=== PATIENT | female | born 1975 | race Caucasian/White ===

== ENCOUNTER 2017-02-15 07:01 | Day surgery (SDC) | payer BC ==
[~2017-02-15 07:01] MED LIST: Lactated Ringers 1,000 ML IV SCH; Lidocaine 1%/Sod Bicarbonate in NS 8.4% 1 ML Syringe IV PRN; Sodium Chloride 0.9% 10 ML Syringe FLUSH PRN
[2017-02-15] MEDS ORDERED: Lidocaine 1% with EPINEPHrine 1:100,000 20 ML MDV ONE (07:03)
--- NOTE | 2017-02-15 07:26 | PCM.PREANE ---
Preanesthetic Assessment - Anesthesia/Transfusion/Family Hx Anesthesia History: Prior Anesthesia Reaction Type of Anesthesia Reaction: Excessive Nausea/Vomiting (not requiring hospital admission ) Family History of Anesthesia Reaction: No Transfusion History: No Prior Transfusion(s) Intubation History: Unknown (no difficulty ) - Review of Systems General: Other (congestion since this AM ) Pulmonary: No Symptoms Cardiovascular: Palpitations (in the past, none since on Metoprolol, which patient did take this am ) Gastrointestinal: No symptoms Neurological: No Symptoms Other: Reports: Thyroid Problems - Physical Assessment NPO Status Date: 02/14/17 NPO Status Time: 21:15 Pulse: 87 O2 Sat by Pulse Oximetry: 100 Respiratory Rate: 16 Blood Pressure: 142/92 Temperature: 97.9 C Height: 1.63 m ASA Class: 2 Mental Status: Alert & Oriented x3 Airway Class: Mallampati = 1 Dentition: Reports: Normal Dentition Thyro-Mental Finger Breadths: 3 Mouth Opening Finger Breadths: 5 ROM/Head Extension: Full Lungs: Clear to auscultation, Normal respiratory effort Cardiovascular: Regular Rate, Regular Rhythm - Allergies Allergies/Adverse Reactions: Allergies Allergy/AdvReac Type Severity Reaction Status Date / Time No Known Allergies Allergy Verified 08/18/14 13:43 - Blood Blood Available: No - Anesthesia Plan Pre-Op Medication Ordered: None Beta Tia: Metoprolol (took this Am) - Acknowledgements Anesthesia Type Planned: General Anesthesia Pt an Appropriate Candidate for the Planned Anesthesia: Yes Alternatives and Risks of Anesthesia Discussed w Pt/Guardian: Yes Pt/Guardian Understands and Agrees with Anesthesia Plan: Yes PreAnesthesia Questionnaire HEENT History: Reports: Sinusitis Cardiovascular History: Reports: Other (see below) Other Cardiovascular History: palpitations Respiratory History: Reports: None Gastrointestinal History: Reports: Other (see below) Other Gastrointestinal History: umbilical mass Genitourinary History: Reports: UTI, recurrent, Other (see below) Other Genitourinary History: frequency, urgency 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: Musculoskeletal History: Reports: Other (see below) Other Musculoskeletal History: R low back pain, back strain Neurological History: Reports: None Psychiatric History: Reports: None Endocrine/Metabolic History: Reports: Hypothyroidism Hematologic History: Reports: None Immunologic History: Reports: None Oncologic (Cancer) History: Reports: None Dermatologic History: Reports: None - Past Surgical History Head Surgeries/Procedures: Reports: None GI Surgical History: Reports: Cholecystectomy - SUBSTANCE USE Smoking Status *Q: Current Every Day Smoker (4 ciggarettes/ day - last smoked this AM at 6Am) Second Hand Smoke Exposure: Yes Days Per Week of Alcohol Use: 1 Number of Drinks Per Day: 0 Total Drinks Per Week: 0 Recreational Drug Use History: No - HOME MEDS Home Medications: Home Meds Levothyroxine Sodium [Synthroid] 137 mcg PO ACBRK 08/18/14 [History] Metoprolol Succinate [Toprol XL] 25 mg PO DAILY 08/18/14 [History] Cholecalciferol (Vitamin D3) [Vitamin D3] 2,000 unit PO DAILY 02/14/17 [History] Levothyroxine Sodium [Levothyroxine Sodium] 150 mcg PO DAILY 02/14/17 [History] - CURRENT (IN HOUSE) MEDS Current Meds: Current Medications Lactated Ringer's (Ringers, Lactated) 1,000 mls @ 125 mls/hr IV ASDIRECTED CAROLYN Stop: 02/15/17 18:00 Lidocaine/Sodium Bicarbonate (Buffered Lidocaine 1% In Ns 8.4%) 0.25 ml IV ONETIME PRN PRN Reason: Prior to IV Start Stop: 02/15/17 18:00 Sodium Chloride (Saline Flush) 10 ml FLUSH ASDIRECTED PRN PRN Reason: Keep Vein Open Stop: 02/15/17 18:00 Discontinued Medications Bupivacaine HCl/Epinephrine Bitart (Marcaine 0.5%/Epinephrine 1:200,000) Confirm Administered Dose 50 ml .ROUTE .STK-MED ONE Stop: 02/15/17 07:04 Lidocaine/Epinephrine (Xylocaine 1% With Epinephrine 1:100,000) Confirm Administered Dose 20 ml .ROUTE .STK-MED ONE Stop: 02/15/17 07:04 Preanesthetic Assessment - ANESTHESIA/TRANSFUSION/FAMILY HX Anesthesia/Transfusion History: No Prior Transfusion(s), Prior Anesthesia (no problems) Family History of Anesthesia Reaction: No - ALLERGIES Allergies/Adverse Reactions: Allergies Allergy/AdvReac Type Severity Reaction Status Date / Time No Known Allergies Allergy Verified 08/18/14 13:43
[2017-02-15] MEDS ORDERED: diphenhydrAMINE 50 MG/ML SDV IVPUSH PRN (07:29)
[2017-02-15] MEDS ORDERED: Ondansetron 4 MG/2 ML SDV IVPUSH PRN (07:29)
[2017-02-15] MEDS ORDERED: fentaNYL 100 MCG/2 ML SDV IVPUSH PRN (07:29)
[2017-02-15] MEDS ORDERED: Scopolamine 1.5 MG Transdermal Patch TRDERM SCH (07:30)
[2017-02-15] MEDS ORDERED: Midazolam 1 MG/ML 2 ML SDV ONE (07:42)
[2017-02-15] MEDS ORDERED: fentaNYL 250 MCG/5 ML SDV ONE (07:42)
[2017-02-15] MEDS ORDERED: Propofol 200 MG/20 ML SDV ONE (07:45)
[2017-02-15] MEDS ORDERED: Acetaminophen 325 MG Tab PO SCH (07:45)
[2017-02-15] MEDS ORDERED: ceFAZolin 1 GM Vial ONE (07:47)
[2017-02-15] MEDS: Bupivacaine 0.5%/EPINEPHrine 1:200,000 50 ML MDV ONE ×2 (08:20→08:28)
[2017-02-15] MEDS ORDERED: Dexamethasone 4 MG/ML SDV ONE (08:25)
[2017-02-15] MEDS ORDERED: Ondansetron 4 MG/2 ML SDV ONE (08:25)
[2017-02-15] MEDS ORDERED: Scopolamine 1.5 MG Transdermal Patch TRDERM ONE (08:30)
[2017-02-15] MEDS ORDERED: Meperidine PF 50 MG/ML Syringe IVPUSH PRN (08:30)
[2017-02-15] MEDS ORDERED: HYDROmorphone 0.5 MG/0.5 ML Syringe IVPUSH PRN (08:30)
[2017-02-15] MEDS ORDERED: ePHEDrine/Normal Saline 25 MG/5 ML Syringe ONE (08:41)
[2017-02-15] MEDS ORDERED: Phenylephrine/Normal Saline 100 MCG/ML 10 ML Syringe ONE (08:41)
[2017-02-15] MEDS ORDERED: Ketorolac 30 MG/ML SDV ONE (08:47)
[2017-02-15] MEDS ORDERED: Ketamine 500 mg/10 ML MDV ONE (08:48)
--- NOTE | 2017-02-15 09:26 | PCM.OPNOTE ---
- General Post-Op/Procedure Note Date of Surgery/Procedure: 02/15/17 Operative Procedure(s): open umbilical hernia repair with mesh Findings: laporscpic incisonal umbilical hernia with 3 cm defect Pre Op Diagnosis: symptomatic umbilical hernia Post-Op Diagnosis: Laparoscopic incisional, umbilical hernia Anesthesia Technique: General ET tube, Local Primary Surgeon: Blair Elizabeth Pathology: none EBL in mLs: 3 Complications: None Condition: Good Free Text/Narrative:: After adequate general endotracheal tube anesthesia was obtained the patient's abdomen was prepped and draped sterilely for an open umbilical hernia repair. After local analgesia was given a supraumbilical incision was made in the previous cholecystectomy incision. The incision was extended down to the herniated sac containing omental fat. I the sac sharply away from the surrounding subcutaneous tissues and skin, down to the fascia. I opened the sac and reducing its omental contents. I excised redundant sac. The diameter of the defect was about 3 cm. I inserted a [address] Mesh. through this opening, and then closed the fascia with interrupted 0 Ethibond suture. The umbilicus was reattached to the midline with a 3-0 Vicryl. Local was given here. The subcutaneous tissues were closed with 3-0 Vicryl. The skin was closed with a 4- 0 subcuticular Vicryl suture. Steri-Strips and gauze were used for the dressing.There were no complications.
--- NOTE | 2017-02-15 09:49 | PCM.POSTAN ---
POST ANESTHESIA ASSESSMENT - MENTAL STATUS Mental Status: alert - VITAL SIGNS Pulse Rate: 84 SaO2: 96 Resp Rate: 10 Blood Pressure: 124/78 Temperature: 97.4 C - RESPIRATORY Respiratory Status: respiratory rate WNL, airway patent, O2 saturation stable - CARDIOVASCULAR CV Status: pulse rate WNL, blood pressure stable - GASTROINTESTINAL GI Status: no symptoms - PAIN Pain Score: 2 (declined pain medicine ) - POST OP HYDRATION Hydration Status: adequate & stable
--- NOTE | 2017-02-15 11:53 | PCM48HPAN ---
Post Anesthesia Note - EVALUATION WITHIN 48HRS OF ANESTHETIC Vital Signs in Normal Range: Yes Patient Participated in Evaluation: Yes Respiratory Function Stable: Yes Airway Patent: Yes Cardiovascular Function Stable: Yes Hydration Status Stable: Yes Pain Control Satisfactory: Yes Nausea and Vomiting Control Satisfactory: Yes Mental Status Recovered: Yes
[2017-02-15] MEDS ORDERED: Acetaminophen/oxyCODONE 325-5 MG Tab PO ONE (13:00)
[2017-02-15 13:20] VITALS: BP 121/77
== END 2017-02-15 12:45 | disposition home or self-care (01) ==
LOC: JD.SDS 07:01
PROVIDERS: ATTEND Surgery
PROC: 0WQF4ZZ Repair Abdominal Wall, Percutaneous Endoscopic Approach (ICD-10-PCS; principal; 2017-02-15)
DX: K42.9 Umbilical hernia without obstruction or gangrene (principal); E03.9 Hypothyroidism, unspecified; Z79.899 Other long term (current) drug therapy
CPT/HCPCS: 49652; A9270; C1781; J0690; J1100; J1885; J2250; J2405; J3010; J7050; J7120; 00750; J2704

== ENCOUNTER 2021-05-08 16:38 | Emergency (ER) | payer MEDICAID ==
[2021-05-08] MEDS ORDERED: Ondansetron 4 MG/2 ML SDV IVPUSH ONE (17:18)
[2021-05-08] MEDS ORDERED: Sodium Chloride 0.9% 1,000 ML IV STA (17:18)
[2021-05-08] MEDS ORDERED: HYDROmorphone 0.5 MG/0.5 ML Syringe IVPUSH ONE (17:18)
[2021-05-08] MEDS ORDERED: Ketorolac 30 MG/ML SDV IVPUSH ONE (17:18)
[2021-05-08] MEDS ORDERED: Sodium Chloride 0.9% 10 ML Syringe FLUSH PRN (17:20)
[2021-05-08 18:52] VITALS: BP 122/78; PULSE 66
--- NOTE | 2021-05-08 19:20 | EDM.PDOC ---
ED HPI GENERAL MEDICAL PROBLEM - General Chief Complaint: Abdominal Pain Stated Complaint: LOW ABD PAIN LOW BACK PAIN BLOOD IN URINE Time Seen by Provider: 05/08/21 17:16 Source of Information: Reports: Patient, RN Notes Reviewed History Limitations: Reports: No Limitations - History of Present Illness INITIAL COMMENTS - FREE TEXT/NARRATIVE: Patient is a 46-year-old female presenting to the ER with complaints of right flank pain with radiation down to her right lower abdomen as well as hematuria. She reports that she had some discomfort last evening, however it resolved. Late this afternoon, the pain returned. She also noted blood in her urine. She has had no fever, chills, nausea, or vomiting. She took some Advil earlier in the day with little relief. Denies any history of kidney stones. She has no dysuria. 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) Other Treatments BOTTLE AND GLASS INSPECTOR: advil Right Abdomen Pain Score (Numeric/FACES): 6 Right Flank Pain Score (Numeric/FACES): 2 - Related Data Allergies Allergy/AdvReac Type Severity Reaction Status Date / Time prednisone Allergy Severe Redness Verified 05/09/21 02:01 Home Meds: Home Meds Metoprolol Succinate [Toprol XL] 50 mg PO DAILY 08/18/14 [History] Cholecalciferol (Vitamin D3) [Vitamin D3] 2,000 unit PO DAILY 02/14/17 [History] Levothyroxine Sodium 135 mcg PO DAILY 02/14/17 [History] Acetaminophen/oxyCODONE [Percocet 325-5 MG] 1 each PO Q4H PRN #20 tab 05/08/21 [Rx] Ondansetron [Zofran ODT] 4 mg PO Q6H PRN #10 tab.dis 05/08/21 [Rx] Tamsulosin [Tamsulosin 24 Hr] 0.4 mg PO DAILY #14 cap.er 05/08/21 [Rx] cephALEXin [Cephalexin] 500 mg PO Q6H 7 Days #27 capsule 05/08/21 [Rx] Past Medical History HEENT History: Reports: Sinusitis Cardiovascular History: Reports: Other (See Below) Other Cardiovascular History: palpitations Respiratory History: Reports: None Gastrointestinal History: Reports: Other (See Below) Other Gastrointestinal History: umbilical mass Genitourinary History: Reports: UTI, Recurrent, Other (See Below) Other Genitourinary History: frequency, urgency 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: Musculoskeletal History: Reports: Other (See Below) Other Musculoskeletal History: R low back pain, back strain Neurological History: Reports: None Psychiatric History: Reports: None Endocrine/Metabolic History: Reports: Hypothyroidism Hematologic History: Reports: None Immunologic History: Reports: None Oncologic (Cancer) History: Reports: None Dermatologic History: Reports: None - Infectious Disease History Infectious Disease History: Reports: Chicken Pox - Past Surgical History Head Surgeries/Procedures: Reports: None GI Surgical History: Reports: Cholecystectomy Social & Family History - Tobacco Use Tobacco Use Status *Q: Current Every Day Tobacco User Years of Tobacco use: 4 Packs/Tins Daily: 0.4 - Caffeine Use Caffeine Use: Reports: Soda, Tea - Recreational Drug Use Recreational Drug Use: No ED ROS GENERAL - Review of Systems Review Of Systems: See Below Constitutional: Denies: Fever, Chills, Weakness, Fatigue HEENT: Reports: No Symptoms Respiratory: Reports: No Symptoms Cardiovascular: Reports: No Symptoms Endocrine: Reports: No Symptoms GI/Abdominal: Reports: Abdominal Pain (Right lower). Denies: Diarrhea, Nausea, Vomiting : Reports: Flank Pain, Hematuria Musculoskeletal: Reports: No Symptoms Skin: Reports: No Symptoms Neurological: Reports: No Symptoms Psychiatric: Reports: No Symptoms Hematologic/Lymphatic: Reports: No Symptoms Immunologic: Reports: No Symptoms ED EXAM, RENAL/ - Physical Exam Exam: See Below Exam Limited By: No Limitations General Appearance: Alert, WD/WN, No Apparent Distress Respiratory/Chest: No Respiratory Distress, Lungs Clear, Normal Breath Sounds, No Accessory Muscle Use, Chest Non-Tender Cardiovascular: Normal Peripheral Pulses, Regular Rate, Rhythm, No Edema, No Gallop, No JVD, No Murmur, No Rub GI/Abdominal: Normal Bowel Sounds, Soft, No Organomegaly, No Distention, No Abnormal Bruit, No Mass, Tender (Right lower and lateral abdominal tenderness) Back Exam: Normal Inspection, Full Range of Motion, CVA Tenderness (R). No: CVA Tenderness (L) Neurological: Alert, Oriented, CN II-XII Intact, Normal Cognition, Normal Gait, Normal Reflexes, No Motor/Sensory Deficits Psychiatric: Normal Affect, Normal Mood Skin Exam: Warm, Dry, Intact, Normal Color, No Rash Course - Vital Signs Last Recorded V/S: Last Vital Signs Temp 97.9 F 05/08/21 18:50 Pulse 66 05/08/21 18:50 Resp 16 05/08/21 18:50 BP 122/78 05/08/21 18:50 Pulse Ox 96 05/08/21 18:50 - Orders/Labs/Meds Orders: Active Orders 24 hr Category Date Time Status CULTURE URINE [MREF] Stat Lab 05/08/21 17:25 Received Peripheral IV Insertion Adult [OM.PC] Stat Oth 05/08/21 17:20 Ordered Labs: Laboratory Tests 05/08/21 05/08/21 05/08/21 Range/Units 17:25 17:25 17:25 WBC 10.21 H (3.98-10.04) K/mm3 RBC 4.43 (3.98-5.22) M/mm3 Hgb 13.4 D (11.2-15.7) gm/dl Hct 40.6 (34.1-44.9) % MCV 91.6 (79.4-94.8) fl MCH 30.2 (25.6-32.2) pg MCHC 33.0 (32.2-35.5) g/dl RDW Std Deviation 43.3 (36.4-46.3) fL Plt Count 273 (182-369) K/mm3 MPV 9.4 (9.4-12.3) fl Neut % (Auto) 71.3 H (34.0-71.1) % Lymph % (Auto) 18.3 L (19.3-51.7) % Divide % (Auto) 8.6 (4.7-12.5) % Eos % (Auto) 1.1 (0.7-5.8) Baso % (Auto) 0.2 (0.1-1.2) % Neut # (Auto) 7.28 H (1.56-6.13) K/mm3 Lymph # (Auto) 1.87 (1.18-3.74) K/mm3 Divide # (Auto) 0.88 H (0.24-0.36) K/mm3 Eos # (Auto) 0.11 (0.04-0.36) K/mm3 Baso # (Auto) 0.02 (0.01-0.08) K/mm3 Sodium 142 (136-145) mEq/L Potassium 3.8 (3.5-5.1) mEq/L Chloride 105 (98-107) mEq/L Carbon Dioxide 27 (21-32) mEq/L Anion Gap 13.8 (5-15) BUN 14 (7-18) mg/dL Creatinine 1.1 H (0.55-1.02) mg/dL Est Cr Clr Drug Dosing 52.30 mL/min Estimated GFR (MDRD) 53 (>60) mL/min BUN/Creatinine Ratio 12.7 L (14-18) Glucose 104 H (70-99) mg/dL Calcium 8.7 (8.5-10.1) mg/dL Total Bilirubin 0.5 (0.2-1.0) mg/dL AST 20 (15-37) U/L ALT 30 (14-59) U/L Alkaline Phosphatase 76 (46-116) U/L C-Reactive Protein <0.2 (<1.0) mg/dL Total Protein 7.4 (6.4-8.2) g/dl Albumin 3.8 (3.4-5.0) g/dl Globulin 3.6 gm/dL Albumin/Globulin Ratio 1.1 (1-2) Urine Color [place] H (Yellow) Urine Appearance Slt cloudy H (Clear) Urine pH 6.0 (5.0-8.0) Ur Specific Edison 1.015 (1.005-1.030) Urine Protein 2+ H (Negative) Urine Glucose (UA) Negative (Negative) Urine Ketones Negative (Negative) Urine Occult Blood 3+ H (Negative) Urine Nitrite Negative (Negative) Urine Bilirubin Negative (Negative) Urine Urobilinogen 0.2 (0.2-1.0) Ur Leukocyte Esterase Trace H (Negative) Urine RBC 50-75 H (0-5) /hpf Urine WBC 5-10 H (0-5) /hpf Ur Epithelial Cells 0-5 (0-5) /hpf Urine Bacteria Few (FEW) /hpf Urine Mucus Not seen (FEW) /hpf Meds: Medications Discontinued Medications Generic Name Dose Route Start Last Admin Trade Name Freq PRN Reason Stop Dose Admin Cephalexin 500 mg 05/08/21 19:26 05/08/21 19:45 Cephalexin 500 Mg Cap PO 05/08/21 19:27 500 mg ONETIME ONE Administration Hydromorphone HCl 0.5 mg 05/08/21 17:18 05/08/21 17:39 Hydromorphone 0.5 Mg/0.5 Ml Syringe IVPUSH 05/08/21 17:19 0.5 mg ONETIME ONE Administration Sodium Chloride 1,000 mls @ 999 mls/hr 05/08/21 17:18 05/08/21 17:40 Normal Saline IV 05/08/21 18:18 999 mls/hr NOW STA Administration Ketorolac Tromethamine 30 mg 05/08/21 17:18 05/08/21 17:41 Ketorolac 30 Mg/Ml Sdv IVPUSH 05/08/21 17:19 30 mg ONETIME ONE Administration Ondansetron HCl 4 mg 05/08/21 17:18 05/08/21 17:43 Ondansetron 4 Mg/2 Ml Sdv IVPUSH 05/08/21 17:19 4 mg ONETIME ONE Administration Sodium Chloride 10 ml 05/08/21 17:20 05/08/21 17:40 Sodium Chloride 0.9% 10 Ml Syringe FLUSH 10 ml ASDIRECTED PRN Administration Keep Vein Open - Re-Assessments/Exams Free Text/Narrative Re-Assessment/Exam: Patient is a 46-year-old female presenting to the emergency room with complaints of right flank pain with radiation down her right lateral and right lower abdomen as well as hematuria. She has had no fever, chills, nausea, vomiting. Exam, she does have some mild right lower and right lateral abdominal tenderness with significant right-sided CVA tenderness. Exam findings are suspicious for kidney stone. I have ordered blood work, urinalysis, and a noncontrast CT of the abdomen pelvis. I will give her a 1 L bolus of normal saline, Toradol, Dilaudid, and Zofran. 05/08/21 19:14 Hematology was significant for WBCs 10.21, creatinine 1.1. Urinalysis shows 2+ protein, 3+ occult blood, trace leukocyte esterase, 50-75 RBCs, and 5-[address] scan of the abdomen pelvis shows moderate right hydronephrosis secondary to an obstructing 6 x 5 mm calculus at the UPJ. I did consult with [facility] given that the patient has trace leukocyte esterase and 5-[address] Camacho. Given her essentially normal WBCs and creatinine and beings that the patient is afebrile with no vomiting. He recommends starting oral antibiotics as well as Flomax. She should follow-up in the clinic early next week with the urology department. He did advised that should she develop fever, chills, or vomiting, she should present to the emergency department and they will "take care of her ". Results were discussed with patient. We will start her on cephalexin for treatment of possible urinary tract infection. I also sent prescription for Percocets and Flomax. Emphasized the need to seek treatment should she develop the fever, chills, or vomiting. She may return to this emergency department or to the [facility] emergency department in [place] where urology services are available. I have pushed the CT images to [facility] in [place] so that they are available for urology when she calls on Monday. Discharge instructions as documented. Departure - Departure Time of Disposition: 19:19 Disposition: Home, Self-Care 01 Condition: Good Clinical Impression: Kidney stone - Discharge Information *PRESCRIPTION DRUG MONITORING PROGRAM REVIEWED*: Yes *COPY OF PRESCRIPTION DRUG MONITORING REPORT IN PATIENT GABRIELA: No Prescriptions: cephALEXin [Cephalexin] 500 mg PO Q6H 7 Days #27 capsule Tamsulosin [Tamsulosin 24 Hr] 0.4 mg PO DAILY #14 cap.er Acetaminophen/oxyCODONE [Percocet 325-5 MG] 1 each PO Q4H PRN #20 tab PRN Reason: Pain Ondansetron [Zofran ODT] 4 mg PO Q6H PRN #10 tab.dis PRN Reason: Nausea/Vomiting Instructions: Kidney Stones Referrals: Nupur Martinez NP [Primary Care Provider] - Anabell Kirk MD [Ordering Only Provider] - Forms: ED Department Discharge Additional Instructions: You were seen in the emergency department today for right flank and abdominal pain as well as blood in your urine. Work-up included blood work, urinalysis, and a CT scan. Results of your work-up show that you do have a fairly large right-sided kidney stone. You have been started on Flomax to help the stone move, cephalexin which is an antibiotic, Percocet for pain, and Zofran for nausea. Your case was discussed with urologist at [facility]. He recommends that you contact their urology department Monday morning to set up a follow-up appointment. Referral has been sent to Dr. Kirk. Your CT images have also been pushed to [facility] in [place] so the urologist may access them. Should you develop fever, chills, vomiting or any other new or worsening symptoms of concern, you should be reevaluated emergently either in the [facility] emergency department or you may proceed to [facility] in [place] or urology services are available. You have been sent home with a urine strainer. Recommend that you strain your urine each time so that if the stone passes you will know. Sepsis Event Note (ED) - Evaluation Sepsis Screening Result: No Definite Risk - My Orders Last 24 Hours: My Active Orders 05/08/21 17:20 Peripheral IV Insertion Adult [OM.PC] Stat 05/08/21 17:25 CULTURE URINE [MREF] Stat - Assessment/Plan Last 24 Hours: My Active Orders 05/08/21 17:20 Peripheral IV Insertion Adult [OM.PC] Stat 05/08/21 17:25 CULTURE URINE [MREF] Stat
[2021-05-08] MEDS ORDERED: Cephalexin 500 MG Cap PO ONE (19:26)
--- NOTE | 2021-05-09 09:54 | CT ---
CT abdomen and pelvis Technique: Multiple axial sections were obtained from above the dome of the diaphragm inferiorly through the pubic symphysis. Intravenous contrast and oral contrast were not utilized. Comparison: No prior CT abdomen or pelvis study is available. Findings: Very minimal atelectasis is seen within the left lung base. Right kidney shows evidence of hydronephrosis. This is due to an obstructing calculus within the proximal right ureter which measures about 5.4 mm. Other portions of the right and left ureter show no additional calcifications. Right kidney shows no abnormal calcifications. Left kidney shows several nonobstructing calculi. Adrenal glands show no nodule. Noncontrast appearance of the liver shows no focal abnormality. Spleen appears normal in size. Pancreas appears within normal limits. Surgical clips are seen from prior cholecystectomy. Abdominal aorta shows no aneurysm. No retroperitoneal adenopathy or mesenteric abnormalities are seen. Appendix is seen which is normal. No pelvic mass or adenopathy is seen. Bone window settings were reviewed which show no acute osseous abnormality. Impression: 1. Right-sided hydronephrosis which is caused by a proximal ureteral calculus measuring about 5.4 mm. 2. Nonobstructing calculi within the left kidney. 3. Mild left basilar atelectasis. No other acute abnormality is appreciated on noncontrast CT study of the abdomen and pelvis. Diagnostic code #3 I agree with preliminary report from [facility], finalized on 05/08/21, 7:37 PM CDT, code 1
== END 2021-05-08 19:55 | disposition home or self-care (01) ==
LOC: JD.ED 16:38
DX: N13.2 Hydronephrosis with renal and ureteral calculous obstruction (principal); E03.9 Hypothyroidism, unspecified; Z72.0 Tobacco use; Z88.8 Allergy status to other drugs, medicaments and biological substances; Z79.899 Other long term (current) drug therapy
CPT/HCPCS: 36415; 74176; 80053; 81001; 85025; 86140; 87086; 96374; 96375; 99284; A9270; J1170; J1885; J2405; J7030

== ENCOUNTER 2021-05-09 01:48 | Emergency (ER) | payer MEDICAID ==
[2021-05-09] MEDS ORDERED: HYDROmorphone 1 MG/ML Syringe IVPUSH ONE (02:14)
[2021-05-09] MEDS ORDERED: Metoclopramide 10 MG/2 ML SDV IVPUSH ONE (02:14)
[2021-05-09] MEDS ORDERED: Sodium Chloride 0.9% 1,000 ML IV SCH (02:15)
--- NOTE | 2021-05-09 02:19 | EDM.PDOC ---
ED HPI GENERAL MEDICAL PROBLEM - General Chief Complaint: Flank Pain Stated Complaint: KIDNEY STONES Time Seen by Provider: 05/09/21 02:14 Source of Information: Reports: Patient History Limitations: Reports: No Limitations - History of Present Illness INITIAL COMMENTS - FREE TEXT/NARRATIVE: 46-year-old female presents to the ED once again within the last 24 hours. She was seen last evening through the ED with acute onset of right flank pain rating around to the right upper abdomen. Associated nausea without vomiting. She felt a mild twinge of pain in the right flank area the day prior. It seemed to settle down with Motrin. However on examination last evening CT scan revealed a 4.5 to 5 mm stone in the proximal right ureter. This is causing him moderate degree of hydroureter and dilatation of the renal pelvis and mild hydronephrosis on the right side. No past history of renal stones. Pain settled down after IV medications in the ED until about an hour and a half ago when the pain reoccurred. Pain is rated as 8-9 out of 10. It is radiating down towards the right groin suggest that the stone is moving down the ureter. On my perusal of the CT scan done I appears to show a 4.5 to 5 mm stone in the proximal right ureter. No other stones were identified in the right kidney. There is calcification within the calyx of the left kidney. Urinalysis done last evening revealed 20-30 red blood cells with a few pus cells in the urine as well. Creatinine was normal. She is not diabetic. A consultation with urology services was obtained and they suggested follow-up in the clinic early next week. Patient took 1 Percocet tablet when the pain returned and felt that it did not help at all. This is not unexpected. Patient was sent home with Percocet tabs 5/325 mg strength. Zofran 4 mg sublingual cephalexin 500 mg 3 times daily for prophylaxis of potential infection and Flomax 0.4 mg once daily. Onset: Today, Sudden Onset Date: 05/09/21 (Awoke from sleep due to the severity of the pain shortly after midnight) Onset Time: 00:20 Duration: Hour(s):, Constant, Other (Strong colicky component to the pain.) Location: Reports: Abdomen (Right flank right upper abdomen radiating down towards the right groin), Back Quality: Reports: Ache, Sharp, Stabbing, Throbbing Severity: Severe Improves with: Reports: None (Oral Percocet x1 did nothing for the pain) Worsens with: Reports: None Context: Denies: Activity, Exercise, Lifting, Sick Contact, Trauma Associated Symptoms: Reports: Nausea/Vomiting (Nausea without vomiting). Denies: No Other Symptoms, Confusion, Chest Pain, Cough, cough w sputum, Diaphoresis, Fever/Chills, Headaches, Loss of Appetite, Malaise, Rash, Seizure, Shortness of Breath, Syncope, Weakness Treatments [employer]ING: Reports: Other (see below) (Took 1 Percocet 5/325 mg strength short after pain started after midnight with no relief of the pain.) Flank Pain Score (Numeric/FACES): 10 - Related Data Allergies Allergy/AdvReac Type Severity Reaction Status Date / Time prednisone Allergy Severe Redness Verified 05/09/21 02:01 Home Meds: Home Meds Metoprolol Succinate [Toprol XL] 50 mg PO DAILY 08/18/14 [History] Cholecalciferol (Vitamin D3) [Vitamin D3] 2,000 unit PO DAILY 02/14/17 [History] Levothyroxine Sodium 135 mcg PO DAILY 02/14/17 [History] Acetaminophen/oxyCODONE [Percocet 325-5 MG] 1 each PO Q4H PRN #20 tab 05/08/21 [Rx] Ondansetron [Zofran ODT] 4 mg PO Q6H PRN #10 tab.dis 05/08/21 [Rx] Tamsulosin [Tamsulosin 24 Hr] 0.4 mg PO DAILY #14 cap.er 05/08/21 [Rx] cephALEXin [Cephalexin] 500 mg PO Q6H 7 Days #27 capsule 05/08/21 [Rx] Past Medical History HEENT History: Reports: Sinusitis Cardiovascular History: Reports: Hypertension, Other (See Below) Other Cardiovascular History: palpitations Respiratory History: Reports: None Gastrointestinal History: Reports: Other (See Below) Other Gastrointestinal History: umbilical mass Genitourinary History: Reports: UTI, Recurrent, Other (See Below) Other Genitourinary History: frequency, urgency [employer] EX[employer]ER History: Reports: Musculoskeletal History: Reports: Other (See Below) Other Musculoskeletal History: R low back pain, back strain Neurological History: Reports: None Psychiatric History: Reports: None Endocrine/Metabolic History: Reports: Hypothyroidism (On levothyroxine supplementation) Hematologic History: Reports: None Immunologic History: Reports: None Oncologic (Cancer) History: Reports: None Dermatologic History: Reports: None - Infectious Disease History Infectious Disease History: Reports: Chicken Pox - Past Surgical History GI Surgical History: Reports: Cholecystectomy Social & Family History - Tobacco Use Tobacco Use Status *Q: Current Every Day Tobacco User Years of Tobacco use: 4 Packs/Tins Daily: 0.4 - Caffeine Use Caffeine Use: Reports: Soda, Tea - Recreational Drug Use Recreational Drug Use: Yes Recreational Drug Use Frequency: Socially - Living Situation & Occupation Living situation: Reports: Occupation: Employed ED ROS GENERAL - Review of Systems Review Of Systems: See Below Constitutional: Reports: Malaise, Fatigue, Decreased Appetite. Denies: Fever, Chills, Weight Loss HEENT: Reports: Glasses Respiratory: Reports: No Symptoms Cardiovascular: Reports: No Symptoms Endocrine: Reports: No Symptoms GI/Abdominal: Reports: No Symptoms : Reports: Frequency, Other (Appreciated hematuria the last 48 hours) Musculoskeletal: Reports: No Symptoms Skin: Reports: No Symptoms Neurological: Reports: No Symptoms Psychiatric: Reports: No Symptoms Hematologic/Lymphatic: Reports: No Symptoms Immunologic: Reports: No Symptoms ED EXAM, RENAL/ - Physical Exam Exam: See Below Exam Limited By: No Limitations General Appearance: Alert, WD/WN, Moderate Distress, Other (Temperature is 36.4 degrees. Heart rate 72 in sinus. Respiratory is 20 with O2 sats of 95% room air. BP is elevated 162 101.) Eye Exam: Bilateral Eye: Normal Inspection (No scleral icterus or blepharal pallor.), PERRL Throat/Mouth: Normal Inspection, Normal Lips, Normal Oropharynx Head: Atraumatic, Normocephalic Neck: Normal Inspection, Supple, Non-Tender, Full Range of Motion. No: Lymphadenopathy (L), Lymphadenopathy (R) Respiratory/Chest: No Respiratory Distress, Lungs Clear, Normal Breath Sounds, No Accessory Muscle Use Cardiovascular: Normal Peripheral Pulses, Regular Rate, Rhythm, No Edema, No Gallop, No Murmur, No Rub GI/Abdominal: Soft (Slightly distended tympany to percussion upper abdomen CoPath mild aerophagia.), No Organomegaly, Distended, Guarding ( with mild guarding.), Tender (In his right lower quadrant of the abdomen), Abnormal Bowel Sounds (Sounds are few and far between.). No: Rigid ( Right lower quadrant), Rebound Back Exam: Normal Inspection, Full Range of Motion. No: CVA Tenderness (L), CVA Tenderness (R) Extremities: Normal Inspection, Normal Range of Motion, Non-Tender, No Pedal Edema Neurological: Alert, Oriented, CN II-XII Intact, Normal Cognition, Normal Gait Psychiatric: Anxious, Other Skin Exam: Warm, Dry (And a good deal of pain.), Intact, Normal Color, No Rash Course - Vital Signs Last Recorded V/S: Last Vital Signs Temp 36.4 C 05/09/21 01:58 Pulse 63 05/09/21 06:45 Resp 16 05/09/21 06:45 BP 153/79 H 05/09/21 06:45 Pulse Ox 95 05/09/21 06:45 - Orders/Labs/Meds Meds: Medications Discontinued Medications Generic Name Dose Route Start Last Admin Trade Name Freq PRN Reason Stop Dose Admin Hydromorphone HCl 1 mg 05/09/21 02:14 05/09/21 02:22 Hydromorphone 1 Mg/Ml Syringe IVPUSH 05/09/21 02:15 1 mg ONETIME ONE Administration Sodium Chloride 1,000 mls @ 150 mls/hr 05/09/21 02:15 05/09/21 02:21 Normal Saline IV 150 mls/hr ASDIRECTED CAROLYN Administration Metoclopramide HCl 7.5 mg 05/09/21 02:14 05/09/21 02:21 Metoclopramide 10 Mg/2 Ml Sdv IVPUSH 05/09/21 02:15 7.5 mg ONETIME ONE Administration - Radiology Interpretation Free Text/Narrative:: 46-year-old female presents to the ED primarily for pain management of right renal colic. She was seen earlier last evening and diagnosed with a 4.5 to 5 mm stone in the right proximal ureter. There were a few pus cells likely 5-10 white blood cells per high-power field with 10-30 red blood cells per high-power field in her urinalysis with a normal creatinine. Consultation was obtained with urology services in [place] and they recommended seeing her in the clinic early next week. Patient still has an 85 to 90% chance of passing a less than 5 mm stone. She states she was fine after leaving the ED and fell asleep for period time. Awoke shortly after midnight with recurrence of severe right flank and lower abdominal pain rating down towards her right groin. This indicates the stone is starting to move down the ureter. Associated nausea without vomiting. She did take 1 Percocet 5/325 mg tablet without any relief of the pain. Patient therefore came to the ED for pain management. Exam reveals right costovertebral angle tenderness and tenderness in the right groin with mild guarding. Plan normal saline at 150 mils per hour. We will give Dilaudid 1 mg IV with Reglan 7.5 mg IV for acute pain relief. Patient did take some Aleve recently and therefore Toradol is relatively contraindicated. No further labs or urinalysis will be collected. - Re-Assessments/Exams Free Text/Narrative Re-Assessment/Exam: 05/09/21 03:00 I did check-in with the patient and she indicates that her pain is down to a 1 out of 10. Plan will be to keep her over night and see how she does with recurrence of pain. Her boyfriend has gone out to sleep in the car at this time. 05/09/21 05:29 so far her pain has not returned indicating the stone has stopped moving at this point time. She has been able to get a little bit of sleep while in the ED. Departure - Departure Time of Disposition: 06:50 Disposition: Home, Self-Care 01 Condition: Fair Clinical Impression: Renal colic on right side, Kidney stone - Discharge Information *PRESCRIPTION DRUG MONITORING PROGRAM REVIEWED*: Not Applicable *COPY OF PRESCRIPTION DRUG MONITORING REPORT IN PATIENT GABRIELA: Not Applicable Instructions: Kidney Stones, [id number], Renal Colic Referrals: Nupur Martinez NP [Primary Care Provider] - Forms: ED Department Discharge Additional Instructions: Evaluation in the emergency room in the early hours of this morning due to recurrence of severe right flank pain rating down towards the right groin. Diagnosed previously the day prior with a 5 mm stone in the upper or proximal right ureter. The history suggest that the stone has likely migrated down the ureter towards the urinary bladder which caused an acute worsening of your pain. You were treated in the emergency room with IV fluids using normal saline 150 mils an hour overnight. Medication was Reglan 7.5 mg IV with Dilaudid 1 mg IV for pain relief. This did bring satisfactory pain relief and allowed you to sleep in the ED most of the night. The stone still has to move into the urinary bladder and once it due to does so the pain will go away completely. We usually passed the stone out the urethra without any discomfort. Continue to strain her urine to confirm that you have passed her stone. As soon as the pain starts again which can be at any time over the next couple of days to a week take 2 tablets of Percocet with Zofran 4 mg under the tongue for pain relief. You would need to return to the hospital again if you do not have satisfactory pain control. Continue the antibiotic cephalexin 500 mg 3 times daily as prescribed by Jennifer Beyer yesterday evening. Hopefully will you will pass the stone over the next few days. Sepsis Event Note (ED) - Evaluation Sepsis Screening Result: No Definite Risk - Focused Exam Vital Signs: Vital Signs Temp Pulse Resp BP Pulse Ox 05/09/21 06:45 63 16 153/79 H 95 05/09/21 01:58 36.4 C 72 20 162/101 H 95
[2021-05-09 06:56] VITALS: BP 153/79; PULSE 63
== END 2021-05-09 06:57 | disposition home or self-care (01) ==
LOC: JD.ED 01:48
DX: N20.0 Calculus of kidney (principal); I10 Essential (primary) hypertension; E03.9 Hypothyroidism, unspecified; Z72.0 Tobacco use; Z88.8 Allergy status to other drugs, medicaments and biological substances; Z79.899 Other long term (current) drug therapy
CPT/HCPCS: 96374; 96375; 99283; J1170; J2765; J7030

== ENCOUNTER 2023-02-03 06:56 | Day surgery (SDC) | payer MEDICAID ==
[~2023-02-03 06:56] MED LIST changes: -Lactated Ringers 1,000 ML IV SCH; +Lidocaine 1%/Sod Bicarbonate in NS 8.4% 1 ML Syringe IDERM PRN; -Lidocaine 1%/Sod Bicarbonate in NS 8.4% 1 ML Syringe IV PRN; +Sodium Chloride 0.9% 10 ML Syringe FLUSH SCH
[2023-02-03] MEDS ORDERED: Lidocaine 1% 5 ML VIAL ONE (07:13)
[2023-02-03] MEDS ORDERED: fentaNYL 100 MCG/2 ML SDV ONE (07:13)
[2023-02-03] MEDS ORDERED: Ondansetron 4 MG/2 ML SDV ONE (07:13)
[2023-02-03] MEDS ORDERED: Propofol 200 MG/20 ML SDV ONE (07:13)
[2023-02-03] MEDS ORDERED: Midazolam 1 MG/ML 2 ML SDV ONE (07:13)
[2023-02-03] MEDS ORDERED: ceFAZolin 2 GM Vial ONE (07:13)
[2023-02-03] MEDS: Lactated Ringers 1,000 ML IV SCH ×2 (07:15→09:15)
[2023-02-03] MEDS ORDERED: Scopolamine 1.5 MG Transdermal Patch TRDERM ONE (07:20)
[2023-02-03] MEDS ORDERED: Dexamethasone 4 MG/ML 5 ML MDV ONE (07:47)
[2023-02-03] MEDS ORDERED: diphenhydrAMINE 50 MG/ML SDV ONE (07:55)
[2023-02-03] MEDS ORDERED: Ketorolac 30 MG/ML SDV ONE (08:04)
[2023-02-03] MEDS ORDERED: fentaNYL 100 MCG/2 ML SDV IVPUSH PRN (08:06)
[2023-02-03] MEDS ORDERED: Ondansetron 4 MG/2 ML SDV IVPUSH PRN ×2 (08:06→08:49)
[2023-02-03] MEDS ORDERED: HYDROmorphone 0.5 MG/0.5 ML Syringe IVPUSH PRN (08:06)
[2023-02-03] MEDS ORDERED: Acetaminophen/oxyCODONE 325-5 MG Tab PO PRN (09:03)
[2023-02-03 10:37] VITALS: BP 147/84; PULSE 75
[2023-02-03] MEDS ORDERED: Ketorolac 30 MG/ML SDV IVPUSH SCH (14:30)
[2023-02-03] MEDS ORDERED: Ibuprofen 600 MG Tab PO PRN (20:00)
== END 2023-02-03 10:20 | disposition home or self-care (01) ==
LOC: JD.SDS 06:56
PROVIDERS: ATTEND Obstetrics & Gynecology
DX: N85.8 Other specified noninflammatory disorders of uterus (principal); E03.9 Hypothyroidism, unspecified; Z88.8 Allergy status to other drugs, medicaments and biological substances; Z79.890 Hormone replacement therapy; Z79.899 Other long term (current) drug therapy; J30.2 Other seasonal allergic rhinitis; Z87.891 Personal history of nicotine dependence
CPT/HCPCS: 58563; A9270; J0690; J1100; J1200; J1885; J2250; J2405; J2704; J3010; J7120; 00952; J3490

== ENCOUNTER 2025-07-30 08:57 | Day surgery (SDC) | payer MEDICAID ==
[~2025-07-30 08:57] MED LIST changes: +Lactated Ringers 1,000 ML IV SCH; -Lidocaine 1%/Sod Bicarbonate in NS 8.4% 1 ML Syringe IDERM PRN
[2025-07-30] MEDS ORDERED: Midazolam 1 MG/ML 2 ML SDV ONE (08:58)
[2025-07-30] MEDS ORDERED: Ropivacaine 0.5% 5 MG/ML 30 ML SDV ONE (08:58)
[2025-07-30] MEDS ORDERED: dexmedeTOMIDine HCl 200 MCG/2 ML SDV ONE (08:58)
[2025-07-30] MEDS ORDERED: propofoL 500 MG/50 ML 50 ML ONE ×2 (08:59→09:50)
[2025-07-30] MEDS: Lactated Ringers 1,000 ML IV SCH (09:35)
[2025-07-30] MEDS: Scopalamine 1mg/3day Transdermal Patch TOP ONE ×2 (09:36→12:00)
[2025-07-30] MEDS ORDERED: droPERidol 2.5 MG/ML SDV ONE (09:42)
[2025-07-30] MEDS ORDERED: Propofol 200 MG/20 ML SDV ONE ×2 (09:50→10:38)
[2025-07-30] MEDS ORDERED: Ondansetron 4 MG/2 ML SDV ONE (10:26)
[2025-07-30] MEDS ORDERED: Lactated Ringers 1,000 ML ONE (10:31)
[2025-07-30] MEDS ORDERED: Ketorolac 30 MG/ML SDV IVPUSH PRN (11:17)
[2025-07-30] MEDS ORDERED: fentaNYL 100 MCG/2 ML SDV IVPUSH PRN (11:17)
[2025-07-30] MEDS ORDERED: Acetaminophen/HYDROcodone 325-5 MG Tab PO PRN (11:52)
[2025-07-30 14:26] VITALS: BP 120/74; PULSE 70
[2025-07-30] MEDS: EPINEPHrine 1 MG/ML SDV ONE (14:38)
== END 2025-07-30 14:10 | disposition home or self-care (01) ==
LOC: JD.SDS 08:57
PROVIDERS: ATTEND Orthopaedic Surgery
DX: M75.21 Bicipital tendinitis, right shoulder (principal); S43.431A Superior glenoid labrum lesion of right shoulder, initial encounter; M94.211 Chondromalacia, right shoulder; E03.9 Hypothyroidism, unspecified; I10 Essential (primary) hypertension; Z88.5 Allergy status to narcotic agent; Z88.8 Allergy status to other drugs, medicaments and biological substances; Z79.890 Hormone replacement therapy; Z79.899 Other long term (current) drug therapy
CPT/HCPCS: 29823; A9270; J0169; J0665; J0690; J1790; J2003; J2250; J2405; J2704; J2795; J7120; J7620; 01630; 64415; J3490